=== PATIENT | male | born 1940 | race Caucasian/White ===

== ENCOUNTER → 2017-10-15 | Outpatient (CLI) | payer OTHER | LOC: HYPER 06:39 | DX: L89.150 Pressure ulcer of sacral region, unstageable (principal); E78.00 Pure hypercholesterolemia, unspecified ==

== ENCOUNTER → 2017-10-29 | Outpatient (CLI) | payer OTHER | LOC: HYPER 06:51 | DX: L89.153 Pressure ulcer of sacral region, stage 3 (principal); R21 Rash and other nonspecific skin eruption; E78.00 Pure hypercholesterolemia, unspecified ==

== ENCOUNTER → 2017-11-20 | Outpatient (CLI) | payer OTHER | LOC: HYPER 06:56 | DX: L89.153 Pressure ulcer of sacral region, stage 3 (principal); E78.00 Pure hypercholesterolemia, unspecified; R21 Rash and other nonspecific skin eruption ==